=== PATIENT | female | born 1970 | race Caucasian/White ===

== ENCOUNTER 2018-12-12 09:18 | Emergency (ER) | payer BC ==
--- NOTE | 2018-12-12 09:53 | EDM.PDOC ---
ED HPI GENERAL MEDICAL PROBLEM - General Chief Complaint: Respiratory Problem Stated Complaint: UPPER RESPIRATORY ISSUES Time Seen by Provider: 12/12/18 09:46 - History of Present Illness INITIAL COMMENTS - FREE TEXT/NARRATIVE: HISTORY AND PHYSICAL: History of present illness: Patient 48-year-old female presents with concern of sinus congestion and pain cough congestion or last 4 days she denies influenza immunization this year denies fever chills nausea vomiting Review of systems: As per history of present illness and below otherwise all systems reviewed and negative. Past medical history: As per history of present illness and as reviewed below otherwise noncontributory. Surgical history: As per history of present illness and as reviewed below otherwise noncontributory. Social history: No reported history of drug or alcohol abuse. Family history: As per history of present illness and as reviewed below otherwise noncontributory. Physical exam: HEENT: Atraumatic, normocephalic, pupils reactive, negative for conjunctival pallor or scleral icterus, mucous membranes moist, throat clear, neck supple, nontender, trachea midline. Tenderness over her frontal and maxillary sinuses to percussion Lungs: Clear to auscultation, breath sounds equal bilaterally, chest nontender. Heart: S1S2, regular, negative for clicks, rubs, or JVD. Abdomen: Soft, nondistended, nontender. Negative for masses or hepatosplenomegaly. Negative for costovertebral tenderness. Pelvis: Stable nontender. Genitourinary: Deferred. Rectal: Deferred. Extremities: Atraumatic, negative for cords or calf pain. Neurovascular unremarkable. Neuro: Awake, alert, oriented. Cranial nerves II through XII unremarkable. Cerebellum unremarkable. Motor and sensory unremarkable throughout. Exam nonfocal. Diagnostics: Chest x-ray influenza screen Therapeutics: None Impression: #1 sinusitis #2 tracheobronchitis Definitive disposition and diagnosis as appropriate pending reevaluation and review of above. - Related Data Allergies Allergy/AdvReac Type Severity Reaction Status Date / Time Cephalosporins Allergy Difficulty Verified 12/12/18 09:49 Breathing Penicillins Allergy Hives Verified 12/12/18 09:49 Sulfa (Sulfonamide Allergy Difficulty Verified 12/12/18 09:49 Antibiotics) Breathing tetracycline Allergy Hives Verified 12/12/18 09:49 Home Meds: Home Meds . [No Known Home Meds] 01/26/19 [History] ED ROS GENERAL - Review of Systems Review Of Systems: ROS reveals no pertinent complaints other than HPI. ED EXAM, GENERAL - Physical Exam Exam: See Below (See dictation) Course - Orders/Labs/Meds Orders: Active Orders 24 hr Category Date Time Status Chest 1V Frontal [CR] Stat Exams 12/12/18 09:50 Ordered INFLUENZA A+B AG SCREEN [RM] Stat Lab 12/12/18 09:50 Ordered Departure - Departure Time of Disposition: 09:52 Disposition: Home, Self-Care 01 Condition: Good Clinical Impression: Sinusitis, Tracheobronchitis - Discharge Information Referrals: Ariana Desouza [facility] [Primary Care Provider] - Additional Instructions: The following information is given to patients seen in the emergency department who are being discharged to home. This information is to outline your options for follow-up care. We provide all patients seen in our emergency department with a follow-up referral. The need for follow-up, as well as the timing and circumstances, are variable depending upon the specifics of your emergency department visit. If you don't have a primary care physician on staff, we will provide you with a referral. We always advise you to contact your personal physician following an emergency department visit to inform them of the circumstance of the visit and for follow-up with them and/or the need for any referrals to a consulting specialist. The emergency department will also refer you to a specialist when appropriate. This referral assures that you have the opportunity for followup care with a specialist. All of these measure are taken in an effort to provide you with optimal care, which includes your followup. Under all circumstances we always encourage you to contact your private physician who remains a resource for coordinating your care. When calling for followup care, please make the office aware that this follow-up is from your recent emergency room visit. If for any reason you are refused follow-up, please contact the [facility] emergency department at and asked to speak to the emergency department charge nurse. Azithromycin albuterol as prescribed follow-up primary medical doctor as needed as discussed return as needed as discussed - My Orders Last 24 Hours: My Active Orders 12/12/18 09:50 Chest 1V Frontal [CR] Stat INFLUENZA A+B AG SCREEN [RM] Stat - Assessment/Plan Last 24 Hours: My Active Orders 12/12/18 09:50 Chest 1V Frontal [CR] Stat INFLUENZA A+B AG SCREEN [RM] Stat
--- NOTE | 2018-12-12 10:45 | CR ---
Indication: Pain. Shortness of breath. Technique: A single AP portable view of the chest was obtained. Comparison: None Findings: The heart is normal in size. The lungs are clear. No infiltrate, pleural effusion, or pneumothorax is identified. Impression: No acute cardiopulmonary process. Dictated by Shelly Kuhn MD @ Dec 12 2018 10:43AM Signed by Dr. Shelly Kuhn @ Dec 12 2018 10:43AM
== END 2018-12-12 11:22 | disposition home or self-care (01) ==
LOC: MW.ED 09:18
DX: J40 Bronchitis, not specified as acute or chronic (principal); J32.9 Chronic sinusitis, unspecified; Z88.0 Allergy status to penicillin; Z88.8 Allergy status to other drugs, medicaments and biological substances; Z88.1 Allergy status to other antibiotic agents
CPT/HCPCS: 71045; 71045-26; 87804; 99283

== ENCOUNTER 2018-12-23 12:15 | Emergency (ER) | payer BC ==
[2018-12-23] MEDS ORDERED: Sodium Chloride 0.9% 10 ML Syringe FLUSH PRN (12:20)
[2018-12-23] MEDS ORDERED: Ketorolac 30 MG/ML SDV IVPUSH ONE (12:20)
[2018-12-23] MEDS ORDERED: Sodium Chloride 0.9% 2.5 ML Syringe FLUSH PRN (12:20)
--- NOTE | 2018-12-23 12:24 | EDM.PDOC ---
ED HPI GENERAL MEDICAL PROBLEM - General Chief Complaint: Chest Pain Stated Complaint: RIGHT SIDE CHEST PAIN Time Seen by Provider: 12/23/18 12:17 Source of Information: Reports: Patient History Limitations: Reports: No Limitations - History of Present Illness INITIAL COMMENTS - FREE TEXT/NARRATIVE: History of present illness: []Patient's had 4 day history of sharp achy chest pain that's worse with breathing and shortness of breath. He has been having hot flashes and sweats but has not taken her temperature. Patient denies any history of heart disease, pleurisy, pneumonia, leg pain, blood clots or recent travel. Review of systems: As per history of present illness and below otherwise all systems reviewed and negative. Past medical history: As per history of present illness and as reviewed below otherwise noncontributory. Surgical history: As per history of present illness and as reviewed below otherwise noncontributory. Social history: No reported history of drug or alcohol abuse. Family history: As per history of present illness and as reviewed below otherwise noncontributory. Physical exam: General: Well developed, well nourished in NAD HEENT: Atraumatic, normocephalic, pupils reactive, negative for conjunctival pallor or scleral icterus, mucous membranes moist, throat clear, neck supple, nontender, trachea midline. Lungs: Clear to auscultation, breath sounds equal bilaterally, chest nontender. Heart: S1S2, regular, negative for clicks, rubs, or JVD. Abdomen: NABS, Soft, nondistended, nontender. Negative for masses or hepatosplenomegaly. Negative for costovertebral tenderness. Pelvis: Stable nontender. Genitourinary: Deferred. Rectal: Deferred. Extremities: Atraumatic, negative for cords or calf pain. Neurovascular unremarkable. Neuro: Awake, alert, oriented. Cranial nerves II through XII unremarkable. Cerebellum unremarkable. Motor and sensory unremarkable throughout. Exam nonfocal. Skin:warm and dry Diagnostics: EKG without ischemia, CBC, chemistry, troponin, d-dimer all negative, chest x- ray negative Therapeutics: Toradol IM with improvement ED Course: Improved Impression: Pleurisy Prescriptions: None Plan: Take ibuprofen or Aleve for pain follow-up with primary care return to us ER if symptoms worsen or change or follow-up with primary care. Definitive disposition and diagnosis as appropriate pending reevaluation and review of above. Right Upper Chest Pain Score (Numeric/FACES): 6 - Related Data Allergies Allergy/AdvReac Type Severity Reaction Status Date / Time Cephalosporins Allergy Difficulty Verified 12/23/18 12:20 Breathing hydromorphone [From Dilaudid] Allergy Anaphylactic Verified 12/23/18 12:20 Shock Penicillins Allergy Hives Verified 12/23/18 12:20 Sulfa (Sulfonamide Allergy Difficulty Verified 12/23/18 12:20 Antibiotics) Breathing tetracycline Allergy Hives Verified 12/23/18 12:20 Home Meds: Home Meds LORazepam 1 tab PO ASDIRECTED PRN 12/23/18 [History] Past Medical History INSIDE TESTER History: Reports: Other (See Below) Other INSIDE TESTER History: c-sections Musculoskeletal History: Reports: Fibromyalgia - Past Surgical History GI Surgical History: Reports: Cholecystectomy Social & Family History - Family History Family Medical History: Noncontributory - Caffeine Use Caffeine Use: Reports: Tea ED ROS GENERAL - Review of Systems Review Of Systems: ROS reveals no pertinent complaints other than HPI. ED EXAM, GENERAL - Physical Exam Exam: See Below (See history of present illness) Course - Vital Signs Last Recorded V/S: Last Vital Signs Temp 96.6 F 12/23/18 12:17 Pulse 75 12/23/18 12:17 Resp 24 H 12/23/18 12:17 BP 137/101 H 12/23/18 12:17 Pulse Ox 98 12/23/18 12:17 - Orders/Labs/Meds Orders: Active Orders 24 hr Category Date Time Status EKG Documentation Completion [RC] STAT Care 12/23/18 12:20 Active Sodium Chloride 0.9% [Saline Flush] Med 12/23/18 12:20 Active 10 ml FLUSH ASDIRECTED PRN Sodium Chloride 0.9% [Saline Flush] Med 12/23/18 12:20 Active 2.5 ml FLUSH ASDIRECTED PRN Saline Lock Insert [OM.PC] Stat Oth 12/23/18 12:20 Ordered Medication Orders Sodium Chloride (Saline Flush) 10 ml FLUSH ASDIRECTED PRN PRN Reason: Keep Vein Open Sodium Chloride (Saline Flush) 2.5 ml FLUSH ASDIRECTED PRN PRN Reason: Keep Vein Open Labs: Laboratory Tests 12/23/18 12/23/18 12/23/18 Range/Units 12:25 12:25 12:25 WBC 7.67 (4.0-11.0) K/uL RBC 4.89 (4.30-5.90) M/uL Hgb 14.4 (12.0-16.0) g/dL Hct 41.7 (36.0-46.0) % MCV 85.3 (80.0-98.0) fL MCH 29.4 (27.0-32.0) pg MCHC 34.5 (31.0-37.0) g/dL RDW Std Deviation 39.5 (28.0-62.0) fl RDW Coeff of Mic 13 (11.0-15.0) % Plt Count 334 (150-400) K/uL MPV 9.20 (7.40-12.00) fL Neut % (Auto) 54.1 (48.0-80.0) % Lymph % (Auto) 37.8 (16.0-40.0) % Dixon % (Auto) 6.5 (0.0-15.0) % Eos % (Auto) 1.2 (0.0-7.0) % Baso % (Auto) 0.4 (0.0-1.5) % Neut # (Auto) 4.2 (1.4-5.7) K/uL Lymph # (Auto) 2.9 H (0.6-2.4) K/uL Dixon # (Auto) 0.5 (0.0-0.8) K/uL Eos # (Auto) 0.1 (0.0-0.7) K/uL Baso # (Auto) 0.0 (0.0-0.1) K/uL Nucleated RBC % 0.0 /100WBC Nucleated RBCs # 0 K/uL D-Dimer, Quantitative < 0.19 (0.0-0.50) mg/L FEU Sodium 141 (136-145) mmol/L Potassium 3.9 (3.5-5.1) mmol/L Chloride 105 (98-107) mmol/L Carbon Dioxide 23.6 (21.0-32.0) mmol/L BUN 21 H (7.0-18.0) mg/dL Creatinine 0.9 (0.6-1.0) mg/dL Est Cr Clr Drug Dosing 72.34 mL/min Estimated GFR (MDRD) > 60.0 ml/min Glucose 93 (74-106) mg/dL Calcium 10.1 (8.5-10.1) mg/dL Total Bilirubin 0.5 (0.2-1.0) mg/dL AST 19 (15-37) IU/L ALT 22 (14-63) IU/L Alkaline Phosphatase 53 (46-116) U/L Troponin I (0.000-0.056) ng/mL Total Protein 8.2 (6.4-8.2) g/dL Albumin 4.1 (3.4-5.0) g/dL Globulin 4.1 H (2.6-4.0) g/dL Albumin/Globulin Ratio 1.0 (0.9-1.6) 12/23/18 Range/Units 12:25 WBC (4.0-11.0) K/uL RBC (4.30-5.90) M/uL Hgb (12.0-16.0) g/dL Hct (36.0-46.0) % MCV (80.0-98.0) fL MCH (27.0-32.0) pg MCHC (31.0-37.0) g/dL RDW Std Deviation (28.0-62.0) fl RDW Coeff of Mic (11.0-15.0) % Plt Count (150-400) K/uL MPV (7.40-12.00) fL Neut % (Auto) (48.0-80.0) % Lymph % (Auto) (16.0-40.0) % Dixon % (Auto) (0.0-15.0) % Eos % (Auto) (0.0-7.0) % Baso % (Auto) (0.0-1.5) % Neut # (Auto) (1.4-5.7) K/uL Lymph # (Auto) (0.6-2.4) K/uL Dixon # (Auto) (0.0-0.8) K/uL Eos # (Auto) (0.0-0.7) K/uL Baso # (Auto) (0.0-0.1) K/uL Nucleated RBC % /100WBC Nucleated RBCs # K/uL D-Dimer, Quantitative (0.0-0.50) mg/L FEU Sodium (136-145) mmol/L Potassium (3.5-5.1) mmol/L Chloride (98-107) mmol/L Carbon Dioxide (21.0-32.0) mmol/L BUN (7.0-18.0) mg/dL Creatinine (0.6-1.0) mg/dL Est Cr Clr Drug Dosing mL/min Estimated GFR (MDRD) ml/min Glucose (74-106) mg/dL Calcium (8.5-10.1) mg/dL Total Bilirubin (0.2-1.0) mg/dL AST (15-37) IU/L ALT (14-63) IU/L Alkaline Phosphatase (46-116) U/L Troponin I < 0.050 (0.000-0.056) ng/mL Total Protein (6.4-8.2) g/dL Albumin (3.4-5.0) g/dL Globulin (2.6-4.0) g/dL Albumin/Globulin Ratio (0.9-1.6) Meds: Medications Generic Name Dose Route Start Last Admin Trade Name Freq PRN Reason Stop Dose Admin Sodium Chloride 10 ml 12/23/18 12:20 Saline Flush FLUSH ASDIRECTED PRN Keep Vein Open Sodium Chloride 2.5 ml 12/23/18 12:20 Saline Flush FLUSH ASDIRECTED PRN Keep Vein Open Discontinued Medications Generic Name Dose Route Start Last Admin Trade Name Freq PRN Reason Stop Dose Admin Ketorolac Tromethamine 30 mg 12/23/18 12:20 12/23/18 12:39 Toradol IVPUSH 12/23/18 12:21 30 mg ONETIME ONE Administration Departure - Departure Time of Disposition: 14:01 Disposition: Home, Self-Care 01 Condition: Good Clinical Impression: Pleurisy Forms: ED Department Discharge Additional Instructions: The following information is given to patients seen in the emergency department who are being discharged to home. This information is to outline your options for follow-up care. We provide all patients seen in our emergency department with a follow-up referral. The need for follow-up, as well as the timing and circumstances, are variable depending upon the specifics of your emergency department visit. If you don't have a primary care physician on staff, we will provide you with a referral. We always advise you to contact your personal physician following an emergency department visit to inform them of the circumstance of the visit and for follow-up with them and/or the need for any referrals to a consulting specialist. The emergency department will also refer you to a specialist when appropriate. This referral assures that you have the opportunity for follow-up care with a specialist. All of these measure are taken in an effort to provide you with optimal care, which includes your follow-up. Under all circumstances we always encourage you to contact your private physician who remains a resource for coordinating your care. When calling for follow-up care, please make the office aware that this follow-up is from your recent emergency room visit. If for any reason you are refused follow-up, please contact the [facility] Emergency Department at and asked to speak to the emergency department charge nurse. Take ibuprofen or Aleve for pain follow-up with primary care return to us ER if symptoms worsen or change or follow-up with primary care. [facility] [address] [place] [address] - My Orders Last 24 Hours: My Active Orders 12/23/18 12:20 EKG Documentation Completion [RC] STAT Sodium Chloride 0.9% [Saline Flush] 10 ml FLUSH ASDIRECTED PRN Sodium Chloride 0.9% [Saline Flush] 2.5 ml FLUSH ASDIRECTED PRN Saline Lock Insert [OM.PC] Stat - Assessment/Plan Last 24 Hours: My Active Orders 12/23/18 12:20 EKG Documentation Completion [RC] STAT Sodium Chloride 0.9% [Saline Flush] 10 ml FLUSH ASDIRECTED PRN Sodium Chloride 0.9% [Saline Flush] 2.5 ml FLUSH ASDIRECTED PRN Saline Lock Insert [OM.PC] Stat
--- NOTE | 2018-12-23 13:18 | CR ---
EXAMINATION: Portable chest radiograph. HISTORY: Shortness of breath. FINDINGS: The trachea is midline. The cardiomediastinal silhouette is within normal limits. No pulmonary infiltrates, effusions or pneumothorax. Osseous structures appear unremarkable. IMPRESSION: No acute cardiopulmonary process.
[2018-12-23 13:30] LABS: CHLORIDE,CL 105 mmol/L (98-107); SODIUM,NA 141 mmol/L (136-145)
== END 2018-12-23 14:10 | disposition home or self-care (01) ==
LOC: MW.ED 12:15
DX: R09.1 Pleurisy (principal); Z88.1 Allergy status to other antibiotic agents; Z88.0 Allergy status to penicillin; Z88.2 Allergy status to sulfonamides; Z88.8 Allergy status to other drugs, medicaments and biological substances; Z90.49 Acquired absence of other specified parts of digestive tract
CPT/HCPCS: 36415; 71045; 80053; 84484; 85025; 85379; 87804; 93005; 96374; 99284; J1885

== ENCOUNTER 2019-06-29 13:41 | Emergency (ER) | payer BC ==
--- NOTE | 2019-06-29 13:56 | EDM.PDOC ---
ED HPI GENERAL MEDICAL PROBLEM - General Chief Complaint: Genitourinary Problem Stated Complaint: LOWER BACK PAIN, PT CLAIMS POSSIBLE UTI Time Seen by Provider: 06/29/19 13:46 Source of Information: Reports: Patient History Limitations: Reports: No Limitations - History of Present Illness INITIAL COMMENTS - FREE TEXT/NARRATIVE: History of present illness: []Patient has had 3 days of right flank pain and noticed pain with urination yesterday. She denies any blood in her urine, fevers, chills, nausea, vomiting or diarrhea. Review of systems: As per history of present illness and below otherwise all systems reviewed and negative. Past medical history: As per history of present illness and as reviewed below otherwise noncontributory. Surgical history: As per history of present illness and as reviewed below otherwise noncontributory. Social history: No reported history of drug or alcohol abuse. Family history: As per history of present illness and as reviewed below otherwise noncontributory. Physical exam: General: Well developed, well nourished in NAD HEENT: Atraumatic, normocephalic, pupils reactive, negative for conjunctival pallor or scleral icterus, mucous membranes moist, throat clear, neck supple, nontender, trachea midline. Lungs: Clear to auscultation, breath sounds equal bilaterally, chest nontender. Heart: S1S2, regular, negative for clicks, rubs, or JVD. Abdomen: NABS, Soft, nondistended, nontender. Negative for masses or hepatosplenomegaly. Negative for costovertebral tenderness. Pelvis: Stable nontender. Genitourinary: Deferred. Rectal: Deferred. Extremities: Atraumatic, negative for cords or calf pain. Neurovascular unremarkable. Neuro: Awake, alert, oriented. Cranial nerves II through XII unremarkable. Cerebellum unremarkable. Motor and sensory unremarkable throughout. Exam nonfocal. Skin:warm and dry Diagnostics: UA was normal, CBC, chemistry normal normal Therapeutics: Pyridium ED Course: Stable Impression: Cystitis Prescriptions: Pyridium, Macrobid Plan: Take meds as directed, follow up with your primary care physician, return to ER if symptoms worsen or change. Definitive disposition and diagnosis as appropriate pending reevaluation and review of above. Back Pain Score (Numeric/FACES): 8 - Related Data Allergies Allergy/AdvReac Type Severity Reaction Status Date / Time Cephalosporins Allergy Difficulty Verified 06/29/19 13:54 Breathing hydromorphone [From Dilaudid] Allergy Anaphylactic Verified 06/29/19 13:54 Shock Penicillins Allergy Hives Verified 06/29/19 13:54 Sulfa (Sulfonamide Allergy Difficulty Verified 06/29/19 13:54 Antibiotics) Breathing tetracycline Allergy Hives Verified 06/29/19 13:54 Home Meds: Home Meds LORazepam 1 tab PO ASDIRECTED PRN 12/23/18 [History] Nitrofurantoin Macrocrystal [Macrodantin] 100 mg PO BID #14 capsule 06/29/19 [Rx ] Phenazopyridine HCl [Pyridium] 200 mg PO TID #9 tablet 06/29/19 [Rx] Past Medical History [employer] History: Reports: Other (See Below) Other [employer] History: c-sections Musculoskeletal History: Reports: Fibromyalgia Psychiatric History: Reports: Anxiety - Infectious Disease History Infectious Disease History: Reports: Chicken Pox - Past Surgical History GI Surgical History: Reports: Cholecystectomy Social & Family History - Family History Family Medical History: Noncontributory - Caffeine Use Caffeine Use: Reports: Tea ED ROS GENERAL - Review of Systems Review Of Systems: See Below ED EXAM, RENAL/ - Physical Exam Exam: See Below Course - Vital Signs Last Recorded V/S: Last Vital Signs Temp 97.1 F 06/29/19 13:55 Pulse 49 L 06/29/19 18:02 Resp 15 06/29/19 18:02 BP 104/63 06/29/19 18:02 Pulse Ox 98 06/29/19 18:02 - Orders/Labs/Meds Orders: Active Orders 24 hr Category Date Time Status CULTURE URINE [RM] Routine Lab 06/29/19 14:27 Ordered Saline Lock Insert [OM.PC] Stat Oth 06/29/19 14:21 Ordered Labs: Laboratory Tests 06/29/19 06/29/19 06/29/19 Range/Units 13:53 14:42 14:42 WBC 6.51 (4.0-11.0) K/uL RBC 4.91 (4.30-5.90) M/uL Hgb 14.0 (12.0-16.0) g/dL Hct 41.9 (36.0-46.0) % MCV 85.3 (80.0-98.0) fL MCH 28.5 (27.0-32.0) pg MCHC 33.4 (31.0-37.0) g/dL RDW Std Deviation 41.4 (28.0-62.0) fl RDW Coeff of Mic 14 (11.0-15.0) % Plt Count 253 (150-400) K/uL MPV 8.90 (7.40-12.00) fL Neut % (Auto) 44.4 L (48.0-80.0) % Lymph % (Auto) 45.0 H (16.0-40.0) % [facility] % (Auto) 8.3 (0.0-15.0) % Eos % (Auto) 1.8 (0.0-7.0) % Baso % (Auto) 0.5 (0.0-1.5) % Neut # (Auto) 2.9 (1.4-5.7) K/uL Lymph # (Auto) 2.9 H (0.6-2.4) K/uL [facility] # (Auto) 0.5 (0.0-0.8) K/uL Eos # (Auto) 0.1 (0.0-0.7) K/uL Baso # (Auto) 0.0 (0.0-0.1) K/uL Nucleated RBC % 0.0 /100WBC Nucleated RBCs # 0 K/uL Sodium 143 (136-145) mmol/L Potassium 4.3 (3.5-5.1) mmol/L Chloride 107 (98-107) mmol/L Carbon Dioxide 28.1 (21.0-32.0) mmol/L BUN 18 (7.0-18.0) mg/dL Creatinine 0.9 (0.6-1.0) mg/dL Est Cr Clr Drug Dosing 71.56 mL/min Estimated GFR (MDRD) > 60.0 ml/min Glucose 83 (74-106) mg/dL Calcium 9.4 (8.5-10.1) mg/dL Total Bilirubin 0.5 (0.2-1.0) mg/dL AST 24 (15-37) IU/L ALT 16 (14-63) IU/L Alkaline Phosphatase 47 (46-116) U/L Total Protein 7.5 (6.4-8.2) g/dL Albumin 3.9 (3.4-5.0) g/dL Globulin 3.6 (2.6-4.0) g/dL Albumin/Globulin Ratio 1.1 (0.9-1.6) Urine Color YELLOW Urine Appearance CLEAR Urine pH 6.0 (5.0-8.0) Ur Specific Pepin 1.025 (1.001-1.035) Urine Protein NEGATIVE (NEGATIVE) mg/dL Urine Glucose (UA) NEGATIVE (NEGATIVE) mg/dL Urine Ketones NEGATIVE (NEGATIVE) mg/dL Urine Occult Blood NEGATIVE (NEGATIVE) Urine Nitrite NEGATIVE (NEGATIVE) Urine Bilirubin NEGATIVE (NEGATIVE) Urine Urobilinogen 0.2 (<2.0) EU/dL Ur Leukocyte Esterase NEGATIVE (NEGATIVE) Urine RBC 0-2 (0-2/HPF) Urine WBC 0-2 (0-5/HPF) Ur Epithelial Cells FEW (NONE-FEW) Amorphous Sediment FEW (NEGATIVE) Urine Bacteria FEW (NEGATIVE) Urine Mucus FEW (NONE-MOD) Meds: Medications Discontinued Medications Generic Name Dose Route Start Last Admin Trade Name Craigq PRN Reason Stop Dose Admin Sodium Chloride 1,000 mls @ 999 mls/hr 06/29/19 14:39 06/29/19 14:47 Normal Saline IV 06/29/19 15:39 999 mls/hr .Bolus ONE Administration Iopamidol 80 ml 06/29/19 16:16 06/29/19 16:33 Isovue Multipack-370 (76%) IVPUSH 06/29/19 16:17 80 ml ONETIME STA Administration Ketorolac Tromethamine 30 mg 06/29/19 14:39 06/29/19 14:47 Toradol IVPUSH 06/29/19 14:40 30 mg ONETIME ONE Administration Phenazopyridine HCl 200 mg 06/29/19 14:04 06/29/19 14:15 Pyridium PO 06/29/19 14:05 200 mg ONETIME ONE Administration Sodium Chloride 10 ml 06/29/19 14:21 06/29/19 14:48 Saline Flush FLUSH 10 ml ASDIRECTED PRN Administration Keep Vein Open Sodium Chloride 2.5 ml 06/29/19 14:21 06/29/19 14:48 Saline Flush FLUSH 2.5 ml ASDIRECTED PRN Administration Keep Vein Open Departure - Departure Time of Disposition: 17:39 Disposition: Home, Self-Care 01 Condition: Good Clinical Impression: Cystitis - Discharge Information *PRESCRIPTION DRUG MONITORING PROGRAM REVIEWED*: No *COPY OF PRESCRIPTION DRUG MONITORING REPORT IN PATIENT KATHERINE: No Prescriptions: Nitrofurantoin Macrocrystal [Macrodantin] 100 mg PO BID #14 capsule Phenazopyridine HCl [Pyridium] 200 mg PO TID #9 tablet Instructions: Urinary Tract Infection, Adult, [id number] Referrals: Fili Amaral MD [Primary Care Provider] - Forms: ED Department Discharge Additional Instructions: The following information is given to patients seen in the emergency department who are being discharged to home. This information is to outline your options for follow-up care. We provide all patients seen in our emergency department with a follow-up referral. The need for follow-up, as well as the timing and circumstances, are variable depending upon the specifics of your emergency department visit. If you don't have a primary care physician on staff, we will provide you with a referral. We always advise you to contact your personal physician following an emergency department visit to inform them of the circumstance of the visit and for follow-up with them and/or the need for any referrals to a consulting specialist. The emergency department will also refer you to a specialist when appropriate. This referral assures that you have the opportunity for follow-up care with a specialist. All of these measure are taken in an effort to provide you with optimal care, which includes your follow-up. Under all circumstances we always encourage you to contact your private physician who remains a resource for coordinating your care. When calling for follow-up care, please make the office aware that this follow-up is from your recent emergency room visit. If for any reason you are refused follow-up, please contact the [facility] at and asked to speak to the emergency department charge nurse. Take meds as directed, follow up with your primary care physician, return to ER if symptoms worsen or change. [facility] [address] [place] [id number] - My Orders Last 24 Hours: My Active Orders 06/29/19 14:21 Saline Lock Insert [OM.PC] Stat 06/29/19 14:27 CULTURE URINE [RM] Routine - Assessment/Plan Last 24 Hours: My Active Orders 06/29/19 14:21 Saline Lock Insert [OM.PC] Stat 06/29/19 14:27 CULTURE URINE [] Routine
[2019-06-29] MEDS ORDERED: Phenazopyridine 200 MG Tab PO ONE (14:04)
[2019-06-29] MEDS ORDERED: Sodium Chloride 0.9% 2.5 ML Syringe FLUSH PRN (14:21)
[2019-06-29] MEDS ORDERED: Sodium Chloride 0.9% 10 ML Syringe FLUSH PRN (14:21)
[2019-06-29] MEDS ORDERED: Ketorolac 30 MG/ML SDV IVPUSH ONE (14:39)
[2019-06-29] MEDS ORDERED: Sodium Chloride 0.9% 1,000 ML IV ONE (14:39)
[2019-06-29 15:26] LABS: BLOOD UREA NITROGEN,BUN 18 mg/dL (7.0-18.0); CARBON DIOXIDE,CO2 28.1 mmol/L (21.0-32.0); CHLORIDE,CL 107 mmol/L (98-107); GLUCOSE RANDOM 83 mg/dL (74-106); POTASSIUM,K 4.3 mmol/L (3.5-5.1); SODIUM,NA 143 mmol/L (136-145)
[2019-06-29] MEDS ORDERED: Iopamidol 755 MG/ML 500 ML Multipack Bottle IVPUSH STA (16:16)
--- NOTE | 2019-06-29 17:32 | CT ---
INDICATION: Frequent urination. Low back pain TECHNIQUE: CT abdomen and pelvis acquired with IV contrast. 80 mL of Isovue 370 administered. COMPARISON: None available FINDINGS: Lower chest: Unremarkable. Liver: Slightly inhomogeneous hepatic parenchyma could be related to the early phase of contrast. Spleen: Unremarkable. Pancreas: Unremarkable. Gallbladder and bile ducts: The gallbladder is not seen, probably resected. Mild central biliary prominence, probably related to the postcholecystectomy state. Adrenal glands: Unremarkable. Kidneys: Unremarkable. GI tract: Unremarkable. Appendix is normal. Vascular structures: Unremarkable. Lymph nodes: Unremarkable. Miscellaneous: No free air or significant free fluid. A tiny shallow fat containing umbilical hernia. Pelvic Organs: Hysterectomy. Prominence and irregularity of the vaginal cuff. Slight bladder wall prominence. Bones: Unremarkable for age. IMPRESSION: No evidence of appendicitis, diverticulitis or bowel obstruction. No obstructive uropathy. Slight bladder wall prominence. Correlate with urinalysis. Status post hysterectomy. Prominence and irregularity of the vaginal cuff. Correlate with gynecological evaluation. Dictated by Eddie Bowers MD @ 06/29/2019 5:31:48 PM Please note that all CT scans at this facility use dose modulation, iterative reconstruction, and/or weight-based dosing when appropriate to reduce radiation dose to as low as reasonably achievable. Dictated by: Eddie Bowers MD @ 06/29/2019 17:31:59 (Electronically Signed)
== END 2019-06-29 18:03 | disposition home or self-care (01) ==
LOC: MW.ED 13:41
DX: N30.90 Cystitis, unspecified without hematuria (principal); F41.9 Anxiety disorder, unspecified; Z88.0 Allergy status to penicillin; Z88.6 Allergy status to analgesic agent; Z88.1 Allergy status to other antibiotic agents; Z79.899 Other long term (current) drug therapy
CPT/HCPCS: 36415; 74177; 80053; 81001; 85025; 87086; 96361; 96374; 99284; A9270; J1885; J7040; Q9967; 99283

== ENCOUNTER 2019-07-01 10:38 | Emergency (ER) | payer BC ==
[2019-07-01] MEDS ORDERED: Ketorolac 30 MG/ML SDV IVPUSH ONE (11:15)
[2019-07-01] MEDS ORDERED: Sodium Chloride 0.9% 1,000 ML IV ONE (11:15)
[2019-07-01] MEDS ORDERED: Ondansetron 4 MG/2 ML SDV IVPUSH ONE (11:15)
--- NOTE | 2019-07-01 11:21 | EDM.PDOC ---
ED HPI GENERAL MEDICAL PROBLEM - General Chief Complaint: Back Pain or Injury Stated Complaint: RIGHT LOWER BACK PAIN Time Seen by Provider: 07/01/19 10:40 Source of Information: Reports: Patient History Limitations: Reports: No Limitations - History of Present Illness INITIAL COMMENTS - FREE TEXT/NARRATIVE: HISTORY AND PHYSICAL: History of present illness: Patient is a 49 -year-old female who presents to the ED today for concern of left lower quadrant and right upper quadrant pain 2 days. Patient was seen in the ED 2 days ago on 06/29/19 and treated for cystitis with Macrobid and Pyridium. Patient states starting last night, her pain is now increased from a 5 out of 10 to a 9 out of 10 and is worsening despite treatment for cystitis. Patient states she feels that the antibiotic she is on is not working for her UTI symptoms. Patient states she has had her gallbladder removed and hysterectomy and denies any other abdominal surgeries. Patient denies any health history. Patient states she's been in a monogamous relationship for a year and is not high risk for STI. Patient denies fever, chills, chest pain, shortness of breath, or cough. Denies headache, neck stiff ness, change in vision, syncope, or near syncope. Denies nausea, vomiting, diarrhea, constipation, or dysuria. Has not noted any blood in urine or stool. Patient has been eating and drinking appropriately. Review of systems: As per history of present illness and below otherwise all systems reviewed and negative. Past medical history: As per history of present illness and as reviewed below otherwise noncontributory. Surgical history: As per history of present illness and as reviewed below otherwise noncontributory. Social history: See social history for further information Family history: As per history of present illness and as reviewed below otherwise noncontributory. Physical exam: General: Patient is alert, oriented, and in no acute distress. Patient sitting comfortably on exam table. HEENT: Atraumatic, normocephalic, pupils equal and reactive bilaterally, negative for conjunctival pallor or scleral icterus, mucous membranes moist, TMs normal bilaterally, throat clear, neck supple, nontender, trachea midline. No drooling or trismus noted. No meningeal signs. No hot potato voice noted. Lungs: Clear to auscultation, breath sounds equal bilaterally, chest nontender. Heart: S1S2, regular rate and rhythm without overt murmur Abdomen: Soft, nondistended. Mild pain to palpation of the left lower quadrant without guarding. Mild pain of the right upper quadrant without guarding/ Negative rebound tenderness. BS positive throughout all quadrants. Negative for masses or hepatosplenomegaly. Negative for costovertebral tenderness bilaterally. Pelvis: Stable nontender. Genitourinary: Court Orderly at bedside SKA. External genitalia grossly unremarkable. Moderate amount of white discharge in the vaginal vault. Surgical cuff is mildly erythematous but no pain / tenderness on exam. Cervix surgically absent. Rectal: Deferred. Skin: Intact, warm, dry. No lesions or rashes noted. Extremities: Atraumatic, negative for cords or calf pain. Neurovascular unremarkable. Neuro: Awake, alert, oriented. Cranial nerves II through XII unremarkable. Cerebellum unremarkable. Motor and sensory unremarkable throughout. Exam nonfocal. Notes: Dr. Flowers verbally involved in patient care. Discussed the importance for follow-up with an PUBLICATIONS PRODUCTION SUPERVISOR. Patient states she has enough Pyridium at home and does not need an additional RX for this. Will switch antibiotic as patient feels that Macrobid is not working for her UTI. Patient states that she has used Bactrim in the past for UTI which worked for her. (see below prescription) Voices understanding and is agreeable to plan of care. Denies any further questions or concerns at this time. Diagnostics: CBC, CMP, UA, EKG, lipase, abdominal pelvic CT, gonorrhea and chlamydia, affirm , vaginal culture, urine culture Therapeutics: Saline, Toradol Prescription: Levaquin (I initially did write for Bactrim as patient states she tolerates this antibiotic for past UTI, but changed RX to Levaquin as there was a miscommunication with sister in the room speaking for patient) Impression: Urinary Tract Infection Vaginal cuff prominence on imaging Plan: 1. Stop prior antibiotic given and take new medication as prescribed. 2. Follow-up with PUBLICATIONS PRODUCTION SUPERVISOR : women's health as discussed. The number has been provided above for you to call and make an appointment with them. You can alternate ibuprofen and Tylenol as directed for pain and discomfort. 3. Return to the ED as needed and as discussed. Definitive disposition and diagnosis as appropriate pending reevaluation and review of above. Right Flank Pain Score (Numeric/FACES): 9 - Related Data Allergies Allergy/AdvReac Type Severity Reaction Status Date / Time Cephalosporins Allergy Difficulty Verified 07/01/19 10:56 Breathing hydromorphone [From Dilaudid] Allergy Anaphylactic Verified 07/01/19 10:56 Shock Penicillins Allergy Hives Verified 07/01/19 10:56 Sulfa (Sulfonamide Allergy Difficulty Verified 07/01/19 10:56 Antibiotics) Breathing tetracycline Allergy Hives Verified 07/01/19 10:56 Home Meds: Home Meds LORazepam 1 tab PO ASDIRECTED PRN 12/23/18 [History] Nitrofurantoin Macrocrystal [Macrodantin] 100 mg PO BID #14 capsule 06/29/19 [Rx ] Phenazopyridine HCl [Pyridium] 200 mg PO TID #9 tablet 06/29/19 [Rx] Past Medical History Genitourinary History: Reports: UTI, Recurrent PUBLICATION[employer]ODUCTION SUPERVISOR History: Reports: Other (See Below) Other PUBLICATION[employer] PRODUCTION SUPERVISOR History: c-sections Musculoskeletal History: Reports: Fibromyalgia Psychiatric History: Reports: Anxiety - Infectious Disease History Infectious Disease History: Reports: None - Past Surgical History GI Surgical History: Reports: Cholecystectomy Female Surgical History: Reports: Section Social & Family History - Family History Family Medical History: Noncontributory - Tobacco Use Smoking Status *Q: Never Smoker Second Hand Smoke Exposure: No - Caffeine Use Caffeine Use: Reports: Coffee - Recreational Drug Use Recreational Drug Use: No ED ROS GENERAL - Review of Systems Review Of Systems: ROS reveals no pertinent complaints other than HPI. ED EXAM, GENERAL - Physical Exam Exam: See Below (see dictation) Course - Vital Signs Last Recorded V/S: Last Vital Signs Temp 36.1 C 07/01/19 10:56 Pulse 71 07/01/19 15:01 Resp 20 07/01/19 10:56 BP 142/82 H 07/01/19 15:01 Pulse Ox 97 07/01/19 15:01 - Orders/Labs/Meds Orders: Active Orders 24 hr Category Date Time Status EKG Documentation Completion [RC] STAT Care 07/01/19 11:15 Active CHLAMYDIA AND GONORRHEA BY TMA Stat Lab 07/01/19 14:39 Received CULTURE GENITAL [RM] Stat Lab 07/01/19 14:38 Received CULTURE URINE [RM] Stat Lab 07/01/19 10:55 Received Labs: Laboratory Tests 07/01/19 07/01/19 07/01/19 Range/Units 10:55 12:00 12:00 WBC 4.51 (4.0-11.0) K/uL RBC 4.56 (4.30-5.90) M/uL Hgb 13.1 (12.0-16.0) g/dL Hct 39.2 (36.0-46.0) % MCV 86.0 (80.0-98.0) fL MCH 28.7 (27.0-32.0) pg MCHC 33.4 (31.0-37.0) g/dL RDW Std Deviation 42.3 (28.0-62.0) fl RDW Coeff of Mic 14 (11.0-15.0) % Plt Count 220 (150-400) K/uL MPV 8.80 (7.40-12.00) fL Neut % (Auto) 52.1 (48.0-80.0) % Lymph % (Auto) 35.9 (16.0-40.0) % Gar[place] % (Auto) 8.9 (0.0-15.0) % Eos % (Auto) 2.7 (0.0-7.0) % Baso % (Auto) 0.4 (0.0-1.5) % Neut # (Auto) 2.4 (1.4-5.7) K/uL Lymph # (Auto) 1.6 (0.6-2.4) K/uL Garland # (Auto) 0.4 (0.0-0.8) K/uL Eos # (Auto) 0.1 (0.0-0.7) K/uL Baso # (Auto) 0.0 (0.0-0.1) K/uL Nucleated RBC % 0.0 /100WBC Nucleated RBCs # 0 K/uL Sodium 145 (136-145) mmol/L Potassium 4.5 (3.5-5.1) mmol/L Chloride 111 H (98-107) mmol/L Carbon Dioxide 26.5 (21.0-32.0) mmol/L BUN 12 (7.0-18.0) mg/dL Creatinine 0.9 (0.6-1.0) mg/dL Est Cr Clr Drug Dosing 71.56 mL/min Estimated GFR (MDRD) > 60.0 ml/min Glucose 79 (74-106) mg/dL Calcium 8.5 (8.5-10.1) mg/dL Total Bilirubin 0.5 (0.2-1.0) mg/dL AST 18 (15-37) IU/L ALT 17 (14-63) IU/L Alkaline Phosphatase 42 L (46-116) U/L Total Protein 6.7 (6.4-8.2) g/dL Albumin 3.5 (3.4-5.0) g/dL Globulin 3.2 (2.6-4.0) g/dL Albumin/Globulin Ratio 1.1 (0.9-1.6) Lipase 159 (73-393) U/L Urine Color ORANGE Urine Appearance CLEAR Urine pH 5.0 (5.0-8.0) Ur Specific [place] 1.010 (1.001-1.035) Urine Protein TRACE H (NEGATIVE) mg/dL Urine Glucose (UA) 100 H (NEGATIVE) mg/dL Urine Ketones NEGATIVE (NEGATIVE) mg/dL Urine Occult Blood NEGATIVE (NEGATIVE) Urine Nitrite POSITIVE H (NEGATIVE) Urine Bilirubin NEGATIVE (NEGATIVE) Urine Urobilinogen 4.0 H (<2.0) EU/dL Ur Leukocyte Esterase TRACE H (NEGATIVE) Urine RBC 0-2 (0-2/HPF) Urine WBC 0-2 (0-5/HPF) Ur Epithelial Cells OCCASIONAL (NONE-FEW) Urine Bacteria RARE (NEGATIVE) Johnna species DNA (NEGATIVE) Gardnerella DNA Probe (NEGATIVE) Trichomonas DNA Probe (NEGATIVE) 07/01/19 Range/Units 14:38 WBC (4.0-11.0) K/uL RBC (4.30-5.90) M/uL Hgb (12.0-16.0) g/dL Hct (36.0-46.0) % MCV (80.0-98.0) fL MCH (27.0-32.0) pg MCHC (31.0-37.0) g/dL RDW Std Deviation (28.0-62.0) fl RDW Coeff of Mic (11.0-15.0) % Plt Count (150-400) K/uL MPV (7.40-12.00) fL Neut % (Auto) (48.0-80.0) % Lymph % (Auto) (16.0-40.0) % Garland % (Auto) (0.0-15.0) % Eos % (Auto) (0.0-7.0) % Baso % (Auto) (0.0-1.5) % Neut # (Auto) (1.4-5.7) K/uL Lymph # (Auto) (0.6-2.4) K/uL Garland # (Auto) (0.0-0.8) K/uL Eos # (Auto) (0.0-0.7) K/uL Baso # (Auto) (0.0-0.1) K/uL Nucleated RBC % /100WBC Nucleated RBCs # K/uL Sodium (136-145) mmol/L Potassium (3.5-5.1) mmol/L Chloride (98-107) mmol/L Carbon Dioxide (21.0-32.0) mmol/L BUN (7.0-18.0) mg/dL Creatinine (0.6-1.0) mg/dL Est Cr Clr Drug Dosing mL/min Estimated GFR (MDRD) ml/min Glucose (74-106) mg/dL Calcium (8.5-10.1) mg/dL Total Bilirubin (0.2-1.0) mg/dL AST (15-37) IU/L ALT (14-63) IU/L Alkaline Phosphatase (46-116) U/L Total Protein (6.4-8.2) g/dL Albumin (3.4-5.0) g/dL Globulin (2.6-4.0) g/dL Albumin/Globulin Ratio (0.9-1.6) Lipase (73-393) U/L Urine Color Urine Appearance Urine pH (5.0-8.0) Ur Specific [place] (1.001-1.035) Urine Protein (NEGATIVE) mg/dL Urine Glucose (UA) (NEGATIVE) mg/dL Urine Ketones (NEGATIVE) mg/dL Urine Occult Blood (NEGATIVE) Urine Nitrite (NEGATIVE) Urine Bilirubin (NEGATIVE) Urine Urobilinogen (<2.0) EU/dL Ur Leukocyte Esterase (NEGATIVE) Urine RBC (0-2/HPF) Urine WBC (0-5/HPF) Ur Epithelial Cells (NONE-FEW) Urine Bacteria (NEGATIVE) Johnna species DNA NEGATIVE (NEGATIVE) Gardnerella DNA Probe NEGATIVE (NEGATIVE) Trichomonas DNA Probe NEGATIVE (NEGATIVE) Meds: Medications Discontinued Medications Generic Name Dose Route Start Last Admin Trade Name Sejal PRN Reason Stop Dose Admin Sodium Chloride 1,000 mls @ 999 mls/hr 07/01/19 11:15 07/01/19 11:51 Normal Saline IV 07/01/19 12:15 999 mls/hr BOLUS ONE Administration Iopamidol 100 ml 07/01/19 13:21 07/01/19 13:23 Isovue-370 (76%) IVPUSH 07/01/19 13:22 80 ml ONETIME STA Administration Ketorolac Tromethamine 30 mg 07/01/19 11:15 07/01/19 11:51 Toradol IVPUSH 07/01/19 11:16 30 mg ONETIME ONE Administration Ondansetron HCl 4 mg 07/01/19 11:15 07/01/19 11:51 Zofran IVPUSH 07/01/19 11:16 4 mg ONETIME ONE Administration Phenazopyridine HCl 200 mg 07/01/19 13:43 07/01/19 13:59 Pyridium PO 07/01/19 13:44 200 mg ONETIME ONE Administration Departure - Departure Time of Disposition: 14:45 Disposition: Home, Self-Care 01 Clinical Impression: Vaginal symptom Urinary tract infection Qualifiers: Urinary tract infection type: acute cystitis Hematuria presence: with hematuria Qualified Code(s): N30.01 - Acute cystitis with hematuria - Discharge Information Instructions: Urinary Tract Infection, Adult, [id number] Referrals: PCP,None [Primary Care Provider] - Forms: ED Department Discharge Additional Instructions: The following information is given to patients seen in the emergency department who are being discharged to home. This information is to outline your options for follow-up care. We provide all patients seen in our emergency department with a follow-up referral. The need for follow-up, as well as the timing and circumstances, are variable depending upon the specifics of your emergency department visit. If you don't have a primary care physician on staff, we will provide you with a referral. We always advise you to contact your personal physician following an emergency department visit to inform them of the circumstance of the visit and for follow-up with them and/or the need for any referrals to a consulting specialist. The emergency department will also refer you to a specialist when appropriate. This referral assures that you have the opportunity for follow-up care with a specialist. All of these measure are taken in an effort to provide you with optimal care, which includes your follow-up. Under all circumstances we always encourage you to contact your private physician who remains a resource for coordinating your care. When calling for follow-up care, please make the office aware that this follow-up is from your recent emergency room visit. If for any reason you are refused follow-up, please contact the [facility] Emergency Department at and asked to speak to the emergency department charge nurse. [facility] [address] [place] [address] [facility] [address] [place] [id number] [facility] [address] [place] [address] 1. Stop prior antibiotic given and take new medication as prescribed. 2. Follow-up with PUBLICATIONS PRODUCTION SUPERVISOR : women's health as discussed. The number has been provided above for you so-called make an appointment with them. You can alternate ibuprofen and Tylenol as directed for pain and discomfort. 3. Return to the ED as needed and as discussed. - My Orders Last 24 Hours: My Active Orders 07/01/19 10:55 CULTURE URINE [RM] Stat 07/01/19 11:15 EKG Documentation Completion [RC] STAT 07/01/19 14:38 CULTURE GENITAL [RM] Stat 07/01/19 14:39 CHLAMYDIA AND GONORRHEA BY TMA Stat - Assessment/Plan Last 24 Hours: My Active Orders 07/01/19 10:55 CULTURE URINE [RM] Stat 07/01/19 11:15 EKG Documentation Completion [RC] STAT 07/01/19 14:38 CULTURE GENITAL [RM] Stat 07/01/19 14:39 CHLAMYDIA AND GONORRHEA BY TMA Stat
[2019-07-01 12:35] LABS: CHLORIDE,CL 111 mmol/L (98-107); SODIUM,NA 145 mmol/L (136-145)
[2019-07-01] MEDS ORDERED: Iopamidol 755 Mg/ML 100 ML Bottle IVPUSH STA (13:21)
[2019-07-01] MEDS ORDERED: Phenazopyridine 200 MG Tab PO ONE (13:43)
--- NOTE | 2019-07-01 14:05 | CT ---
INDICATION: Abdominal pain TECHNIQUE: A CT volumetric acquisition was performed of the abdomen and pelvis during intravenous infusion of 80 cc of Isovue 370 nonionic intravenous contrast. COMPARISON: CT abdomen pelvis dated 06/29/2019 FINDINGS: The CT images demonstrate normal aeration of the lung bases. There is no evidence of pleural or pericardial fluid. Within the abdomen the liver, spleen and pancreas appear normal. Gallbladder is been resected. The bile ducts are normal in size. The adrenal glands have normal morphology. There is symmetric uniform enhancement of both kidneys. The abdominal aorta appears normal. There is no evidence of retroperitoneal lymphadenopathy. The small intestine and small-bowel mesentery appear normal. No inflammatory changes are noted about the cecum. The appendix appears absent. There is no evidence of obstruction or acute inflammation within the colon. There is continued irregularity and enhancement of the upper vaginal cuff with mild fat stranding technical a early along the left lateral margin. The partially filled urinary bladder appears normal. IMPRESSION: Continued prominence and irregularity of the vaginal cuff with mild adjacent fat stranding. Consider gynecologic referral. Please note that all CT scans at this facility use dose modulation, iterative reconstruction, and/or weight-based dosing when appropriate to reduce radiation dose to as low as reasonably achievable. Dictated by Jai Lance MD @ Jul 01 2019 1:52PM Signed by Dr. Jai Lance @ Jul 01 2019 2:04PM
== END 2019-07-01 15:02 | disposition home or self-care (01) ==
LOC: MW.ED 10:38
DX: N30.01 Acute cystitis with hematuria (principal); F41.9 Anxiety disorder, unspecified; Z88.0 Allergy status to penicillin; Z88.2 Allergy status to sulfonamides; Z88.8 Allergy status to other drugs, medicaments and biological substances; Z88.1 Allergy status to other antibiotic agents; Z90.49 Acquired absence of other specified parts of digestive tract; Z79.899 Other long term (current) drug therapy
CPT/HCPCS: 36415; 74177; 80053; 81001; 83690; 85025; 87070; 87086; 87480; 87491; 87510; 87591; 87660; 93005; 96361; 96374; 96375; 99284; A9270; J1885; J2405; J7040; Q9967